=== PATIENT | female | born 1950 | race Caucasian/White ===

== ENCOUNTER → 2016-11-11 | Outpatient (CLI) | payer OTHER ==
--- NOTE | 2016-11-11 16:31 | DX ---
Sinus Series, 4 views History: Frontal headache x1 month Comparison: None Findings: There is an air-fluid level in the lower portion of the left maxillary sinus which remains normally aerated. The frontal, ethmoid, right maxillary and sphenoid sinuses are well aerated and un remarkable. Impression: 1. Active left maxillary sinus disease. 2. No source for frontal headache identified. If symptoms persist, despite treatment of the left maxi llary sinus disease, then consider CT or MRI for further evaluation.
== END ==
LOC: CIMAGING 15:35
PROVIDERS: ATTEND Family Medicine
DX: R51 Headache (principal); J01.00 Acute maxillary sinusitis, unspecified
CPT/HCPCS: 70210-PO